=== PATIENT | male | born 1950 | race Caucasian/White ===

== ENCOUNTER 2018-06-18 16:30 | Emergency (ER) | payer MEDICARE, SELFPAY ==
[2018-06-18] VITALS (20 sets, daily range): BP systolic 94–154; BP diastolic 59–104; PULSE 73–94; RESP 12–21; TEMP 36.3; O2SAT 94–100; BMI 43.0
--- NOTE | 2018-06-18 | DI.RAD.S_ITS ---
PROCEDURE: XR SHOULDER RT MIN 2V INDICATIONS: POST REDUCTION TECHNIQUE: 3 views of the shoulder were acquired. COMPARISON: , CR, XR SHOULDER RT MIN 2V, 06/18/2018, 16:47. FINDINGS: Bones: No fractures or dislocations. No suspicious bony lesions. Visualized ribs appear intact. Soft tissues: No suspicious soft tissue calcifications. IMPRESSION: Technically successful reduction of an anterior inferior shoulder dislocation. No fractures identified. Dictated by: Rick Marsh M.D. on 06/18/2018 at 20:56 Approved by: Rick Marsh M.D. on 06/18/2018 at 20:57
--- NOTE | 2018-06-18 16:40 | DI.RAD.S_ITS ---
PROCEDURE: XR SHOULDER RT MIN 2V INDICATIONS: Fall with deformity TECHNIQUE: 3 views of the shoulder were acquired. COMPARISON: None. FINDINGS: Bones: There is anterior, inferior dislocation of the right humeral head relative to the glenoid without visible fracture. The acromioclavicular interval and coracoclavicular interval are maintained. No suspicious bony lesions. Visualized ribs appear intact. Soft tissues: No suspicious soft tissue calcifications. IMPRESSION: Anterior, inferior right shoulder dislocation without visualized fractures. Dictated by: Edgar Charles M.D. on 06/18/2018 at 17:17 Approved by: Edgar Charles M.D. on 06/18/2018 at 17:20
--- NOTE | 2018-06-18 16:41 | DI.RAD.S_ITS ---
PROCEDURE: XR WRIST RT MIN 3V INDICATIONS: pain in wrist TECHNIQUE: 4 views of the wrist were acquired. COMPARISON: [facility], CR, XR SHOULDER RT MIN 2V, 06/18/2018, 16:47. FINDINGS: Bones: No fractures or dislocations. No suspicious bony lesions. Soft tissues: No suspicious soft tissue calcifications. IMPRESSION: Right wrist without acute osseous abnormalities. Degenerative changes of the first carpometacarpal joint. Dictated by: Edgar Charles M.D. on 06/18/2018 at 17:16 Approved by: Edgar Charles M.D. on 06/18/2018 at 17:17
--- NOTE | 2018-06-18 17:23 | ED.UPPEXIN ---
HPI - Extremity Injury (Upper) General Chief Complaint: Extremity Injury, Upper Stated Complaint: Fall right arm injury Time Seen by Provider: 06/18/18 17:10 Source: patient and family Mode of arrival: ambulatory Limitations: no limitations History of Present Illness HPI narrative: This is a 68-year-old male comes to the emergency department with complaint of right shoulder injury. Patient states that he was playing basketball with his grandson he went to chelsy the basketball and fell while running down a Hill with his arm outstretched. Patient has significant pain in his shoulder he states his arm also feels numb and he was having difficulty with moving the lower arm, although he states that the numbness and weakness in the lower arm has improved. Patient states that he did not have any other injuries. He denies any head injury he denies any neck or back pain. He denies any other injury to the forearm. Patient denies any past medical history. States he has had a broken ankle the past. He did get up his hand a little states that his tetanus is up to date. Related Data Allergies Allergy/AdvReac Type Severity Reaction Status Date / Time No Known Drug Allergies Allergy Verified 06/18/18 16:39 Review of Systems Review of Systems ROS Unobtainable: All systems reviewed & are unremarkable except as noted in HPI and below ENT Ears, Nose, Mouth, and Throat: Denies neck pain Musculoskeletal Reports as per HPI, Denies back pain, Reports deformity, Reports arthralgias (right shoulder), Reports limited range of motion, Reports muscle weakness (improving), Denies neck pain and Reports numbness (improving) Integumentary/Breasts Reports wounds (abrasion palm) Neurologic Reports numbness (improving) [facility] Social History Smoking Status: Never smoker Social History Smoking Status: Never smoker Exam Narrative Exam Narrative: GEN: well nourished, well appearing obese male, alert and oriented x 3, patient appears to be in moderate distress. HEENT: Atraumatic, pupils are equal round reactive to light, extraocular movements are intact, nares are clear, throat is clear without any exudates, erythema, tonsillar enlargement or uvular deviation HEART: Regular rate and rhythm without murmur, clicks, rubs. LUNGS:Lungs clear to auscultation, no wheezes, rales, crackles, chest moves symmetrically ABD:bowel sounds normal, soft, non-tender, no guarding, rebound, rigidity, no masses noted, no hepatosplenomegaly BACK: No cervical, thoracic or lumbar vertebral point tenderness. Patient has normal range of motion. MSCL: Patient is holding his right arm adjacent to his chest and flexed at the elbow. Patient does not wish to move it. He has equal public safety dispatcher bilaterally, normal sensation in all 5 fingers and move them normally. 2+ radial pulse bilaterally. Patient does not have any bony pain of the wrist or elbow. Difficulty with evaluating for deformity is patient's body habitus limits this evaluation. NEURO:CN 2-12 intact, sensation normal Initial Vital Signs Initial Vital Signs: Vital Signs Temperature 97.4 F L 06/18/18 16:32 Pulse Rate 94 H 06/18/18 16:32 Respiratory Rate 19 06/18/18 16:32 Blood Pressure 94/59 L 06/18/18 16:32 Pulse Oximetry 94 06/18/18 16:32 Procedures Orthopedic Joint Reduction Joint #1: Time Out Performed: Yes Side: right Joint Reduction Location: shoulder Analgesia: procedural sedation Shoulder Technique Used (if applicable): traction/counter-traction, scapula manipulation and external rotation Post-reduction neuro exam: intact Post-reduction vascular: intact Post Reduction X-Ray Obtained: Yes Post Reduction X-Ray Results: reduced Splint Applied: Yes (Shoulder immobilizer) Patient Tolerated Procedure: Well Procedural Sedation Patient Age: Patient is 5yrs or older Indication: fracture/dislocation reduction ASA Class: II Mallampati Airway Classification: Class II Time of Last PO Intake: 17:00 Preparation: cardiac exercise specialist applied, pulse oximeter, capnometry used, supplemental O2 applied, suction/airway equipment at bedside and IV secured Ketamine: IV Ketamine dose (mg): 125 IV Propofol dose (mg): 50 ED Sedation Level: Moderate (Concious) Patient Tolerated Procedure: Well Complications: Respiratory Depression-Repositioning Required Interventions: Airway repositioned and Oxygen applied Additional Comments: Patient tolerated procedure well. He did have a slight decrease in his oxygenation when he had some hypoventilation after receiving ketamine. Patient had airway repositioned and oxygen was placed on patient's oxygenation improved. His CO2 was maintained in the 30 range. Patient otherwise tolerated the procedure well. It is alert and back at baseline. Course Orders Ordered: ED Orders 06/18/18 16:40 XR shoulder RT min 2V Stat 06/18/18 16:41 XR wrist RT min 3V Stat Discontinued Medications Ketamine HCl (Ketalar) 125 mg 1 mg/kg (125 mg) IV NOW ONE Stop: 06/18/18 17:43 Last Admin: 06/18/18 17:43 Dose: 125 mg Propofol (Diprivan) 50 mg IV NOW ONE Stop: 06/18/18 18:30 Last Admin: 06/18/18 17:52 Dose: 50 mg Vital Signs - 8 hr 06/18/18 16:32 06/18/18 17:30 06/18/18 17:35 Temperature 97.4 F L Pulse Rate 94 H 84 81 Pulse Rate [Right Radial] Respiratory Rate 19 17 14 Blood Pressure 94/59 L Blood Pressure [Left Arm] 133/67 133/69 Pulse Oximetry 94 96 95 06/18/18 17:40 06/18/18 17:45 06/18/18 17:50 Temperature Pulse Rate 82 80 82 Pulse Rate [Right Radial] 88 Respiratory Rate 18 19 17 Blood Pressure Blood Pressure [Left Arm] 131/75 134/96 H 154/104 H Pulse Oximetry 95 94 100 06/18/18 17:55 06/18/18 18:00 06/18/18 18:05 Temperature Pulse Rate 80 80 73 Pulse Rate [Right Radial] Respiratory Rate 17 17 16 Blood Pressure Blood Pressure [Left Arm] 137/88 129/76 106/60 Pulse Oximetry 100 100 99 06/18/18 18:10 06/18/18 18:15 06/18/18 18:20 Temperature Pulse Rate 79 76 77 Pulse Rate [Right Radial] Respiratory Rate 20 17 17 Blood Pressure Blood Pressure [Left Arm] 133/76 129/77 130/73 Pulse Oximetry 98 97 96 06/18/18 18:22 06/18/18 18:25 06/18/18 18:30 Temperature Pulse Rate 86 88 84 Pulse Rate [Right Radial] Respiratory Rate 12 18 21 Blood Pressure Blood Pressure [Left Arm] 144/96 H 130/74 Pulse Oximetry 97 99 06/18/18 18:35 06/18/18 18:45 06/18/18 18:56 Temperature Pulse Rate 83 78 Pulse Rate [Right Radial] 88 Respiratory Rate 19 15 Blood Pressure Blood Pressure [Left Arm] 152/92 H 148/80 H Pulse Oximetry 99 100 06/18/18 19:00 06/18/18 19:42 Temperature Pulse Rate 78 88 Pulse Rate [Right Radial] Respiratory Rate 17 16 Blood Pressure Blood Pressure [Left Arm] 142/83 H 139/89 Pulse Oximetry 99 97 MDM - Extremity Injury (Upper) Imaging Data Wrist x-ray: Radiologist's impression: [address] [address] XRay Report Signed Patient: Tejas Simon LMR#: [id number] : 1950Acct:[id number] Age/Sex: 68 / MDate of Service: 06/18/18 Loc: ED Accession Number: [id number] Procedure: XR wrist RT min 3V Ordering Provider: Mallory Olivo D.O. PROCEDURE: XR WRIST RT MIN 3V INDICATIONS: pain in wrist TECHNIQUE: 4 views of the wrist were acquired. COMPARISON: [facility], , XR SHOULDER RT MIN 2V, 06/18/2018, 16:47. FINDINGS: Bones: No fractures or dislocations. No suspicious bony lesions. Soft tissues: No suspicious soft tissue calcifications. IMPRESSION: Right wrist without acute osseous abnormalities. Degenerative changes of the first carpometacarpal joint. Dictated by: Edgar Charles M.D. on 06/18/2018 at 17:16 Approved by: Edgar Charles M.D. on 06/18/2018 at 17:17 Shoulder x-ray: Radiologist's impression: Tejas Simon 68 M [address] [address] XRay Report Signed Patient: Tejas Simon LMR#: [id number] : 1950Acct:[id number] Age/Sex: 68 / MDate of Service: 06/18/18 Loc: ED Accession Number: [id number] Procedure: XR shoulder RT min 2V Ordering Provider: Mallory Olivo D.O. PROCEDURE: XR SHOULDER RT MIN 2V INDICATIONS: Fall with deformity TECHNIQUE: 3 views of the shoulder were acquired. COMPARISON: None. FINDINGS: Bones: There is anterior, inferior dislocation of the right humeral head relative to the glenoid without visible fracture. The acromioclavicular interval and coracoclavicular interval are maintained. No suspicious bony lesions. Visualized ribs appear intact. Soft tissues: No suspicious soft tissue calcifications. IMPRESSION: Anterior, inferior right shoulder dislocation without visualized fractures. Dictated by: Edgar Charles M.D. on 06/18/2018 at 17:17 Approved by: Edgar Charles M.D. on 06/18/2018 at 17:20 shoulder xray #2: My impression: alignment improved, no fx noted. MDM Narrative Medical decision making narrative: Patient improved after reduction, his symptoms have improved greatly and he is much more comfortable at this time. Spoke with Dr. Barnhart, plan for patient to follow up with Orthopedic. Patient given verbal as well as written instructions for follow-up. Discharge Plan Departure Patient Disposition: Home Clinical Impression: Anterior shoulder dislocation Qualifiers: Encounter type: initial encounter Laterality: right Qualified Code(s): S43.014A - Anterior dislocation of right humerus, initial encounter Instructions: DI for Shoulder Dislocation Activity Restrictions/Additional Instructions: Follow-up with Orthopedic surgery in the next 5-7 days for recheck. Call for an appointment. Continue to use shoulder immobilizer until cleared by Orthopedic surgery. You may take ibuprofen and/or Tylenol as needed for pain. Splint Care: Keep splint clean and dry. Elevated affected body part to decrease swelling. OK to use ice pack on the affected body part. Use for 15-20 minutes each time, for 5-6x per day. If you develop worsening pain, numbness, tingling, discoloration of the affected body part, loosen the splint by loosening the shoulder immobilizer, and either see your doctor for an urgent re-assessment, or return to the Emergency Department. Return to the Emergency Department for any new or worsening symptoms. Referrals: Jered Barnhart MD [Physician] -
[2018-06-18] MEDS: KETAMINE 500 MG/5 ML INJ 125 MG IV (17:43)
[2018-06-18] MEDS: PROPOFOL 200 MG/20 ML VIAL 50 MG IV (17:52)
--- NOTE | 2018-06-18 18:58 | PC.NURSE ---
1740 Patient sedated with ketamine 125mg. RT, Dr. Olivo and this EDRN at bedside. Attempt at relocation begun.
--- NOTE | 2018-06-18 18:59 | PC.NURSE ---
1745 Still attempting to relocate shoulder at this time. Xray called to bedside.
--- NOTE | 2018-06-18 18:59 | PC.NURSE ---
9285 Patient receiving 50mg propofol due to beginning to awaken. Still attempting to relocate right arm. Xrays confirm still dislocated. Dr. Jefferson at bedside assisting.
--- NOTE | 2018-06-18 19:00 | PC.NURSE ---
1800 Right shoulder relocated and xrays taken to confirm. Patient awake and alert and oriented. No complaints of pain and states it is much better.
--- NOTE | 2018-06-18 19:12 | ED_ITS ---
HPI - Extremity Injury (Upper) General Chief Complaint: Extremity Injury, Upper Stated Complaint: Fall right arm injury Time Seen by Provider: 06/18/18 17:10 Source: patient and family Mode of arrival: ambulatory Limitations: no limitations History of Present Illness HPI narrative: This is a 68-year-old male comes to the emergency department with complaint of right shoulder injury. Patient states that he was playing basketball with his grandson he went to chelsy the basketball and fell while running down a Hill with his arm outstretched. Patient has significant pain in his shoulder he states his arm also feels numb and he was having difficulty with moving the lower arm, although he states that the numbness and weakness in the lower arm has improved. Patient states that he did not have any other injuries. He denies any head injury he denies any neck or back pain. He denies any other injury to the forearm. Patient denies any past medical history. States he has had a broken ankle the past. He did get up his hand a little states that his tetanus is up to date. Related Data Allergies Allergy/AdvReac Type Severity Reaction Status Date / Time No Known Drug Allergies Allergy Verified 06/18/18 16:39 Review of Systems Review of Systems ROS Unobtainable: All systems reviewed & are unremarkable except as noted in HPI and below ENT Ears, Nose, Mouth, and Throat: Denies neck pain Musculoskeletal Reports as per HPI, Denies back pain, Reports deformity, Reports arthralgias (right shoulder), Reports limited range of motion, Reports muscle weakness (improving), Denies neck pain and Reports numbness (improving) Integumentary/Breasts Reports wounds (abrasion palm) Neurologic Reports numbness (improving) [facility] Social History Smoking Status: Never smoker Social History Smoking Status: Never smoker Exam Narrative Exam Narrative: GEN: well nourished, well appearing obese male, alert and oriented x 3, patient appears to be in moderate distress. HEENT: Atraumatic, pupils are equal round reactive to light, extraocular movements are intact, nares are clear, throat is clear without any exudates, erythema, tonsillar enlargement or uvular deviation HEART: Regular rate and rhythm without murmur, clicks, rubs. LUNGS:Lungs clear to auscultation, no wheezes, rales, crackles, chest moves symmetrically ABD:bowel sounds normal, soft, non-tender, no guarding, rebound, rigidity, no masses noted, no hepatosplenomegaly BACK: No cervical, thoracic or lumbar vertebral point tenderness. Patient has normal range of motion. MSCL: Patient is holding his right arm adjacent to his chest and flexed at the elbow. Patient does not wish to move it. He has equal exercise manager bilaterally, normal sensation in all 5 fingers and move them normally. 2+ radial pulse bilaterally. Patient does not have any bony pain of the wrist or elbow. Difficulty with evaluating for deformity is patient's body habitus limits this evaluation. NEURO:CN 2-12 intact, sensation normal Initial Vital Signs Initial Vital Signs: Vital Signs Temperature 97.4 F L 06/18/18 16:32 Pulse Rate 94 H 06/18/18 16:32 Respiratory Rate 19 06/18/18 16:32 Blood Pressure 94/59 L 06/18/18 16:32 Pulse Oximetry 94 06/18/18 16:32 Procedures Orthopedic Joint Reduction Joint #1: Time Out Performed: Yes Side: right Joint Reduction Location: shoulder Analgesia: procedural sedation Shoulder Technique Used (if applicable): traction/counter-traction, scapula manipulation and external rotation Post-reduction neuro exam: intact Post-reduction vascular: intact Post Reduction X-Ray Obtained: Yes Post Reduction X-Ray Results: reduced Splint Applied: Yes (Shoulder immobilizer) Patient Tolerated Procedure: Well Procedural Sedation Patient Age: Patient is 5yrs or older Indication: fracture/dislocation reduction ASA Class: II Mallampati Airway Classification: Class II Time of Last PO Intake: 17:00 Preparation: court recording monitor applied, pulse oximeter, capnometry used, supplemental O2 applied, suction/airway equipment at bedside and IV secured Ketamine: IV Ketamine dose (mg): 125 IV Propofol dose (mg): 50 ED Sedation Level: Moderate (Concious) Patient Tolerated Procedure: Well Complications: Respiratory Depression-Repositioning Required Interventions: Airway repositioned and Oxygen applied Additional Comments: Patient tolerated procedure well. He did have a slight decrease in his oxygenation when he had some hypoventilation after receiving ketamine. Patient had airway repositioned and oxygen was placed on patient's oxygenation improved. His CO2 was maintained in the 30 range. Patient otherwise tolerated the procedure well. It is alert and back at baseline. Course Orders Ordered: ED Orders 06/18/18 16:40 XR shoulder RT min 2V Stat 06/18/18 16:41 XR wrist RT min 3V Stat Discontinued Medications Ketamine HCl (Ketalar) 125 mg 1 mg/kg (125 mg) IV NOW ONE Stop: 06/18/18 17:43 Last Admin: 06/18/18 17:43 Dose: 125 mg Propofol (Diprivan) 50 mg IV NOW ONE Stop: 06/18/18 18:30 Last Admin: 06/18/18 17:52 Dose: 50 mg Vital Signs - 8 hr 06/18/18 16:32 06/18/18 17:30 06/18/18 17:35 Temperature 97.4 F L Pulse Rate 94 H 84 81 Pulse Rate [Right Radial] Respiratory Rate 19 17 14 Blood Pressure 94/59 L Blood Pressure [Left Arm] 133/67 133/69 Pulse Oximetry 94 96 95 06/18/18 17:40 06/18/18 17:45 06/18/18 17:50 Temperature Pulse Rate 82 80 82 Pulse Rate [Right Radial] 88 Respiratory Rate 18 19 17 Blood Pressure Blood Pressure [Left Arm] 131/75 134/96 H 154/104 H Pulse Oximetry 95 94 100 06/18/18 17:55 06/18/18 18:00 06/18/18 18:05 Temperature Pulse Rate 80 80 73 Pulse Rate [Right Radial] Respiratory Rate 17 17 16 Blood Pressure Blood Pressure [Left Arm] 137/88 129/76 106/60 Pulse Oximetry 100 100 99 06/18/18 18:10 06/18/18 18:15 06/18/18 18:20 Temperature Pulse Rate 79 76 77 Pulse Rate [Right Radial] Respiratory Rate 20 17 17 Blood Pressure Blood Pressure [Left Arm] 133/76 129/77 130/73 Pulse Oximetry 98 97 96 06/18/18 18:22 06/18/18 18:25 06/18/18 18:30 Temperature Pulse Rate 86 88 84 Pulse Rate [Right Radial] Respiratory Rate 12 18 21 Blood Pressure Blood Pressure [Left Arm] 144/96 H 130/74 Pulse Oximetry 97 99 06/18/18 18:35 06/18/18 18:45 06/18/18 18:56 Temperature Pulse Rate 83 78 Pulse Rate [Right Radial] 88 Respiratory Rate 19 15 Blood Pressure Blood Pressure [Left Arm] 152/92 H 148/80 H Pulse Oximetry 99 100 06/18/18 19:00 06/18/18 19:42 Temperature Pulse Rate 78 88 Pulse Rate [Right Radial] Respiratory Rate 17 16 Blood Pressure Blood Pressure [Left Arm] 142/83 H 139/89 Pulse Oximetry 99 97 MDM - Extremity Injury (Upper) Imaging Data Wrist x-ray: Radiologist's impression: [address] [address] XRay Report Signed Patient: Tejas Simon LMR#: [id number] : 1950Acct:[id number] Age/Sex: 68 / MDate of Service: 06/18/18 Loc: ED Accession Number: [id number] Procedure: XR wrist RT min 3V Ordering Provider: Mallory Olivo D.O. PROCEDURE: XR WRIST RT MIN 3V INDICATIONS: pain in wrist TECHNIQUE: 4 views of the wrist were acquired. COMPARISON: [facility], , XR SHOULDER RT MIN 2V, 06/18/2018, 16:47. FINDINGS: Bones: No fractures or dislocations. No suspicious bony lesions. Soft tissues: No suspicious soft tissue calcifications. IMPRESSION: Right wrist without acute osseous abnormalities. Degenerative changes of the first carpometacarpal joint. Dictated by: Edgar Charles M.D. on 06/18/2018 at 17:16 Approved by: Edgar Charles M.D. on 06/18/2018 at 17:17 Shoulder x-ray: Radiologist's impression: Tejas Simon 68 M [address] [address] XRay Report Signed Patient: Tejas Simon LMR#: [id number] : 1950Acct:[id number] Age/Sex: 68 / MDate of Service: 06/18/18 Loc: ED Accession Number: [id number] Procedure: XR shoulder RT min 2V Ordering Provider: Mallory Olivo D.O. PROCEDURE: XR SHOULDER RT MIN 2V INDICATIONS: Fall with deformity TECHNIQUE: 3 views of the shoulder were acquired. COMPARISON: None. FINDINGS: Bones: There is anterior, inferior dislocation of the right humeral head relativ e to the glenoid without visible fracture. The acromioclavicular interval and coracoclavicular interval are maintained. No suspicious bony lesions. Visualized ribs appear intact. Soft tissues: No suspicious soft tissue calcifications. IMPRESSION: Anterior, inferior right shoulder dislocation without visualized fractures. Dictated by: Edgar Chrales M.D. on 06/18/2018 at 17:17 Approved by: Edgar Charles M.D. on 06/18/2018 at 17:20 shoulder xray #2: My impression: alignment improved, no fx noted. MDM Narrative Medical decision making narrative: Patient improved after reduction, his symptoms have improved greatly and he is much more comfortable at this time. Spoke with Dr. Barnhart, plan for patient to follow up with Orthopedic. Patient given verbal as well as written instructions for follow-up. Discharge Plan Departure Patient Disposition: Home Clinical Impression: Anterior shoulder dislocation Qualifiers: Encounter type: initial encounter Laterality: right Qualified Code(s): S43.014A - Anterior dislocation of right humerus, initial encounter Instructions: DI for Shoulder Dislocation Activity Restrictions/Additional Instructions: Follow-up with Orthopedic surgery in the next 5-7 days for recheck. Call for an appointment. Continue to use shoulder immobilizer until cleared by Orthopedic surgery. You may take ibuprofen and/or Tylenol as needed for pain. Splint Care: Keep splint clean and dry. Elevated affected body part to decrease swelling. OK to use ice pack on the affected body part. Use for 15-20 minutes each time, for 5-6x per day. If you develop worsening pain, numbness, tingling, discoloration of the affected body part, loosen the splint by loosening the shoulder immobilizer, and either see your doctor for an urgent re-assessment, or return to the Emergency Department. Return to the Emergency Department for any new or worsening symptoms. Referrals: Jered Barnhart MD [Physician] -
== END 2018-06-18 20:06 | disposition home or self-care (01) ==
PROVIDERS: Emergency Provider Emergency Medicine
DX: S43.014A Anterior dislocation of right humerus, initial encounter (principal); W18.39XA Other fall on same level, initial encounter; Y93.67 Activity, basketball; Y92.9 Unspecified place or not applicable; Y99.9 Unspecified external cause status
CPT/HCPCS: 23650; 36591; 73030; 73110; 94770; 99152; 99285; J2704